=== PATIENT | male | born 1985 | race Caucasian/White ===

== ENCOUNTER 2017-01-22 02:31 | Emergency (ER) | payer SELFPAY ==
[~2017-01-22] VITALS: Ht 157.5 cm; Wt 75.0 kg
[2017-01-22 07:37] VITALS: BP 119/76
== END 2017-01-22 08:03 | disposition home or self-care (01) ==
LOC: ER 02:31
DX: F10.129 Alcohol abuse with intoxication, unspecified (principal); H10.89 Other conjunctivitis
CPT/HCPCS: 82962; 99284; Z7610